=== PATIENT | female | born 1945 | race Caucasian/White ===

== ENCOUNTER 2017-09-25 12:12 | Emergency (ER) | payer BC ==
[2017-09-25 13:47] VITALS: BP 114/72
--- NOTE | 2017-09-25 14:52 | UC ---
Ear Complaint HPI - HPI Summary HPI Summary: 72 y/o female presents to the urgent care c/o nasal congestion, left ear pain and fullness with pressure for the past 2 weeks. Pt reports she has been applying Debrox otic drops and warm water with hydrogen peroxide. But now she developed ear pain and decrease hearing. Pain is 4/10. Pt denies fever, SOB, dizziness, chest pain, abdominal pain, N/V/D - History of Current Complaint Chief Complaint: UCEar Stated Complaint: LEFT EAR COMPLAINT Time Seen by Provider: 09/25/17 14:50 Hx Obtained From: Patient Hx Last Menstrual Period: menopausal ?: No Onset/Duration: Gradual Onset, Lasting Weeks - 2 weeks Severity Initially: Mild Severity Currently: Moderate Pain Intensity: 4 Pain Scale Used: 0-10 Numeric Aggravating Factors: Other - touch Alleviating Factors: Nothing Associated Signs/Symptoms: Positive: Hearing Loss, URI Symptoms. Negative: Discharge - Allergies/Home Medications Allergies/Adverse Reactions: Allergies Allergy/AdvReac Type Severity Reaction Status Date / Time No Known Allergies Allergy Verified 09/25/17 13:47 Home Medications: Home Medications [id number] C- [Glucosamine Chondroitin] 1 tab PO DAILY [History Confirmed 09/25/17] Multiple Vitamins W/ Minerals [Multivitamin Women] 1 tab PO DAILY 09/25/17 [ History Confirmed 09/25/17] PMH/Surg Hx/FS Hx/Imm Hx Previously Healthy: Yes - Pt denies PMHX - Surgical History Surgical History: None - Family History Known Family History: Positive: Cardiac Disease, Hypertension - Social History Occupation: Retired Lives: With Family Alcohol Use: Daily Substance Use Type: None Smoking Status (MU): Never Smoked Tobacco Review of Systems Constitutional: Negative Skin: Negative Eyes: Negative ENT: Ear Ache - Lf ear pain and fullness, Nasal Discharge Respiratory: Negative Cardiovascular: Negative Gastrointestinal: Negative Genitourinary: Negative Motor: Negative Neurovascular: Negative Musculoskeletal: Negative Neurological: Negative Psychological: Negative Is Patient Immunocompromised?: No All Other Systems Reviewed And Are Negative: Yes Physical Exam Triage Information Reviewed: Yes Vital Signs: Initial Vital Signs Temp 98.5 F 09/25/17 13:40 Pulse 73 09/25/17 13:40 Resp 16 09/25/17 13:40 BP 114/72 09/25/17 13:40 Pulse Ox 98 09/25/17 13:40 - Additional Comments Vital signs: reviewed General: well developed, well nourished female sitting in the examining table w/ o any apparent distress . Skin: [place], warm and dry, no evidence of atopic dermatitis, psoriasis, seborrhea. HEENT: -Head: atraumatic, non tender; no scalp dermatitis. -Eyes: sclera and conjunctiva clear, PERRLA, EOMI -Ears: no pre- or postauricular lymphadenopathy or erythema; Rt TM WNL, LF external ear canal clear and LF TM with erythema and mild purulent discharge. No fluid level, vesicles, or bullae. No perforation. -Nose/Face: erythematous and edematous nasal mucosa with clear rhinorrhea, no frontal or maxillary sinus tender to palpation. -Mouth/Throat: Mucous membrane moist, posterior pharynx clear, no erythema or exudates. Neck: supple, FROM, nontender, no lymphadenopathy, no meningismus. Chest: Clear to auscultation, normal breath sounds Abd: soft, Bowel sounds active, Nontender. Back: no spinal or CVAT Neuro: A&O x4, GCS 15, no focal neuro deficits, Skin: warm and dry Ear Complaint Course/Dx - Course Course Of Treatment: 72 y/o female presents to the urgent care c/o nasal congestion, left ear pain and fullness with pressure for the past 2 weeks. Pt reports she has been applying Debrox otic drops and warm water with hydrogen peroxide. But now she developed ear pain and decrease hearing. Pain is 4/10. Pt denies fever, SOB, dizziness, chest pain, abdominal pain, N/V/D. Hx obtained. Pt with left otitis media on examination. Pt Rx Amoxicillin PO. Advised not to due any empiric treatment with her ears. Advised. If symptoms do not improve or worsen to return to the urgent care or f/u with PCP for further management. Pt understood and agreed with D/C instructions. - Differential Dx/Diagnosis Differential Diagnosis/HQI/PQRI: Otitis Externa, Otitis Media, Perforated TM, Pharyngitis, URI Provider Diagnoses: 1- Left acute otitis media Discharge - Discharge Plan Condition: Stable Disposition: HOME Prescriptions: Amoxicillin PO (*) [Amoxicillin 875 MG (*)] 875 mg PO BID #20 tab Patient Education Materials: Otitis Media (ED) Referrals: Padmini Garcia MD [Primary Care Provider] - If Needed Additional Instructions: 1-Please take full course of antibiotic to avoid any resistance 2-Take ibuprofen PO q6-8hrs OTC after meals for pain. 3-If symptoms do not improve or worsen please f/u with your PCP or return to the urgent care for further evaluation and treatment.
== END 2017-09-25 15:18 | disposition home or self-care (01) ==
LOC: UCCORT 12:12
DX: H66.92 Otitis media, unspecified, left ear (principal)
CPT/HCPCS: 99212; G0463